=== PATIENT | female | born 1945 | race Caucasian/White ===

== ENCOUNTER 2016-12-29 22:19 | Observation (INO) | payer OTHER ==
[~2016-12-29] VITALS: Ht 152.4 cm; Wt 66.5 kg
[2016-12-29 23:40] LABS: ADD MIUA? NO; BILIRUBIN NEGATIVE; BLOOD NEGATIVE; COLOR STRAW ((YELLOW)); GLUCOSE (STRIP) NEGATIVE; KETONES NEGATIVE; LEUKOCYTES NEGATIVE; NITRITE NEGATIVE; PROTEIN (STRIP) NEGATIVE; SPECIFIC GRAVITY 1.004 (1.000-1.030); UCUL ADDED? NO; UROBILINOGEN 0.2 MG/DL (0.2-1.0)
[2016-12-29 23:47] LABS: EOSINOPHIL (%) 0.9 % (0-5); EOSINOPHIL COUNT 0.1 K/uL (0-0.3); HEMATOCRIT 34.8 % (36.0-46.0); IMMATURE GRANULOCYTE (%) 0.3 % (0.0-0.7); INSTRUMENT ABS NEUTROPHIL CT 5.3 K/uL; LYMPHOCYTE COUNT 1.3 K/uL (1.0-2.8); MCH 32.2 PG (29.0-34.0); MCHC 32.2 G/DL (30.0-36.0); MEAN PLAT.VOLUME 11.2 uM^3 (9.5-12.4); MONOCYTE (%) 9.3 % (3-12); MONOCYTE COUNT 0.7 K/uL (0-0.8); NEUTROPHIL (%) 71.7 % (45-76); NEUTROPHIL COUNT 5.3 K/uL (1.8-6.4); PLATELET COUNT 166 K/uL (156-360); RBC DIS.WIDTH-CV 12.8 % (11.8-14.6); RBC DIS.WIDTH-SD 46.6 % (39-53); RED BLOOD COUNT 3.48 M/uL (3.80-5.20); WHITE BLOOD COUNT 7.4 K/uL (4.1-10.2)
[2016-12-30] LABS: CHLORIDE 112 mEq/L (99-109); POTASSIUM 4.3 mEq/L (3.7-5.4); SODIUM 145 mEq/L (136-147)
[2016-12-30 00:02] LABS: GLUCOSE 87 mg/dL (70-99)
[2016-12-30 00:03] LABS: ANION GAP 10 MEQ/L (2-14)
[2016-12-30 00:04] LABS: INTER. NORMALIZED RATIO 1.1; PROTHROMBIN TIME 11.5 (9.2-11.2); PTT 32.1 (25-32)
[2016-12-30 00:06] LABS: GFR ESTIMATE (CALCULATED) 30 mL/min/; UREA NITROGEN (BUN) 33 mg/dL (9-23)
[2016-12-30 00:09] LABS: TROP-I INTERPRETATION NEGATIVE; TROPONIN-I < 0.01 ng/mL (0.0-0.30)
[2016-12-30 01:22] LABS: HDL CHOLESTEROL 52 MG/DL (Desirable>=50); LDL CHOLESTEROL 100 mg/dL (Desirable<100); NON-HDL CHOLESTEROL 112 mg/dL (Desirable<160); TOTAL CHOLESTEROL 164 mg/dL (Desirable<200); TRIGLYCERIDES 60 MG/DL (Normal: <150)
[2016-12-30] MEDS ORDERED: PERCOCET 10/1 TABLET PO (01:35)
[2016-12-30] MEDS ORDERED: ZESTRIL20 MG PO (01:35)
[2016-12-30] MEDS ORDERED: MIRTAZAPINE7.5 MG PO (01:36)
[2016-12-30] MEDS ORDERED: ELIQUIS2.5 MG PO (01:36)
[2016-12-30] MEDS ORDERED: ATORVASTATIN CA40 MG PO (01:36)
[2016-12-30] MEDS ORDERED: LEVO-T75 MCG PO (01:37)
[2016-12-30] MEDS ORDERED: CENTRUM SILVER1 EAC4 PO (01:37)
[2016-12-30] MEDS ORDERED: CARDIZEM120 MG PO (01:37)
[2016-12-30] MEDS ORDERED: POLY-IRON150 MG PO (01:38)
[2016-12-30] MEDS ORDERED: CELEXA20 MG PO (01:38)
[2016-12-30] MEDS ORDERED: AMIODARONE HCL200 MG PO (01:38)
[2016-12-30] MEDS ORDERED: NEURONTIN400 MG PO (01:39)
[2016-12-30] MEDS ORDERED: ALPRAZOLAM0.5 MG PO (01:39)
[2016-12-30] MEDS ORDERED: BIOTIN1000 MICRO PO (01:39)
[2016-12-30] MEDS ORDERED: XANAX0.5 MG PO (01:40)
[2016-12-30 06:18] VITALS: BP 142/82
[2016-12-30 07:17] LABS: Estimated Average Glucose 103 mg/dL (70-123); HEMOGLOBIN A1c (GLYCOHEMOGLOB) 5.2 % HGB (Below 5.7)
[2016-12-30 10:49] VITALS: BP 174/82
[2016-12-30 12:40] VITALS: BP 134/72
[2016-12-30 12:57] LABS: HEMATOCRIT 38.6 % (36.0-46.0); MCH 33.2 PG (29.0-34.0); MCHC 32.6 G/DL (30.0-36.0); MCV 101.6 FL (83-99); MEAN PLAT.VOLUME 11.1 uM^3 (9.5-12.4); PLATELET COUNT 170 K/uL (156-360); RBC DIS.WIDTH-SD 48.5 % (39-53); WHITE BLOOD COUNT 6.8 K/uL (4.1-10.2)
[2016-12-30 13:19] LABS: ANION GAP 9 MEQ/L (2-14); CHLORIDE 110 MEQ/L (99-109); POTASSIUM 4.4 MEQ/L (3.7-5.4); SAMPLE HEMOLYSIS CHECK 0; SAMPLE ICTERIC CHECK 0; SAMPLE LIPEMIA CHECK 0; SODIUM 143 MEQ/L (136-147)
[2016-12-30 13:25] LABS: GFR ESTIMATE (CALCULATED) 40 mL/min/; GLUCOSE 103 mg/dL (70-99); UREA NITROGEN (BUN) 28 mg/dL (9-23)
[2016-12-30] MEDS ORDERED: ASPIR-LOW81 MG PO (14:21)
== END 2016-12-30 16:38 | disposition home or self-care (01) ==
LOC: EME 22:19 → EDOF 12-30 04:01 → 5WEST 12-30 05:42
PROVIDERS: Emergency Medicine; Physician Assistant Medical
DX: G45.9 Transient cerebral ischemic attack, unspecified (principal); F01.50 Vascular dementia, unspecified severity, without behavioral disturbance, psychotic disturbance, mood disturbance, and anxiety; I11.0 Hypertensive heart disease with heart failure; I50.9 Heart failure, unspecified; J44.9 Chronic obstructive pulmonary disease, unspecified; E78.5 Hyperlipidemia, unspecified; Z87.891 Personal history of nicotine dependence; Z95.0 Presence of cardiac pacemaker; E03.9 Hypothyroidism, unspecified; Z88.0 Allergy status to penicillin; I48.91 Unspecified atrial fibrillation; M79.7 Fibromyalgia
CPT/HCPCS: 70450; 71020; 80048; 80061; 81003; 82607; 83036; 84443; 84484; 85025; 85027; 85610; 85730; 93005; 93880; 99281; 99285; G0378; G8978 GP CI; G8979 GP CH; J7030

== ENCOUNTER 2017-04-30 12:34 | Day surgery (SDC) | payer OTHER ==
[~2017-04-30] VITALS: Ht 152.4 cm; Wt 61.2 kg
[~2017-04-30 12:34] MED LIST: ALPRAZOLAM0.5 MG PO; AMIODARONE HCL200 MG PO; ASPIR-LOW81 MG PO; ATORVASTATIN CA40 MG PO; BIOTIN1000 MICRO PO; CARDIZEM120 MG PO; CELEXA20 MG PO; CENTRUM SILVER1 EAC4 PO; ELIQUIS2.5 MG PO; LEVO-T75 MCG PO; MIRTAZAPINE7.5 MG PO; NEURONTIN400 MG PO; PERCOCET 10/1 TABLET PO; POLY-IRON150 MG PO; XANAX0.5 MG PO; ZESTRIL20 MG PO
[2017-04-30] MEDS ORDERED: ELIQUIS5 MG PO ×2 (13:00→13:01)
== END 2017-04-30 14:06 | disposition home or self-care (01) ==
LOC: PAIN 12:34 → SDC 13:00 → PAIN 13:00
DX: M53.3 Sacrococcygeal disorders, not elsewhere classified (principal); M46.1 Sacroiliitis, not elsewhere classified; I10 Essential (primary) hypertension; E03.9 Hypothyroidism, unspecified; J44.9 Chronic obstructive pulmonary disease, unspecified; Z87.891 Personal history of nicotine dependence; Z88.0 Allergy status to penicillin; I48.0 Paroxysmal atrial fibrillation; I73.9 Peripheral vascular disease, unspecified; Z86.73 Personal history of transient ischemic attack (TIA), and cerebral infarction without residual deficits; Z79.01 Long term (current) use of anticoagulants
CPT/HCPCS: J1030; J1100; J2250; J3010; S0020

== ENCOUNTER 2017-07-12 04:16 | Emergency (ER) | payer OTHER ==
[~2017-07-12] VITALS: Ht 152.4 cm; Wt 59.5 kg
[~2017-07-12 04:16] MED LIST changes: +ELIQUIS5 MG PO
[2017-07-12 06:15] VITALS: BP 129/63
== END 2017-07-12 06:15 | disposition home or self-care (01) ==
LOC: EME 04:16
PROC: 0HQ1XZZ Repair Face Skin, External Approach (ICD-10-PCS; principal; 2017-07-12)
DX: S01.81XA Laceration without foreign body of other part of head, initial encounter (principal); W01.198A Fall on same level from slipping, tripping and stumbling with subsequent striking against other object, initial encounter; Y92.002 Bathroom of unspecified non-institutional (private) residence as the place of occurrence of the external cause; Z79.01 Long term (current) use of anticoagulants; Z88.2 Allergy status to sulfonamides; Z88.5 Allergy status to narcotic agent; Z88.0 Allergy status to penicillin
CPT/HCPCS: 99281; 99284

== ENCOUNTER 2017-08-17 10:47 | Day surgery (SDC) | payer OTHER ==
[~2017-08-17] VITALS: Ht 152.4 cm; Wt 63.0 kg
[~2017-08-17 10:47] MED LIST changes: +ASCORBIC ACID500 M3 PO; +CATAPRES0.1 MG PO; +LORTAB 10-3251 EACH PO; +TYLENOL EXTRA500 MG PO; +WELLBUTRIN75 MG PO
[2017-08-19] MEDS ORDERED: METAMUCIL PACK3.4 GM PO (16:07)
== END 2017-08-17 12:45 | disposition home or self-care (01) ==
LOC: PAIN 10:47 → SDC 11:15 → PAIN 12:45
DX: M47.816 Spondylosis without myelopathy or radiculopathy, lumbar region (principal); M54.5 Low back pain; G89.29 Other chronic pain; M46.1 Sacroiliitis, not elsewhere classified; M53.3 Sacrococcygeal disorders, not elsewhere classified; M79.7 Fibromyalgia; F41.8 Other specified anxiety disorders; I12.9 Hypertensive chronic kidney disease with stage 1 through stage 4 chronic kidney disease, or unspecified chronic kidney disease; N18.3 Chronic kidney disease, stage 3 (moderate); E03.9 Hypothyroidism, unspecified; J44.9 Chronic obstructive pulmonary disease, unspecified; Z87.891 Personal history of nicotine dependence
CPT/HCPCS: J1030; J2250; J3010; S0020

== ENCOUNTER 2017-08-24 13:03 | Day surgery (SDC) | payer OTHER ==
[~2017-08-24] VITALS: Ht 152.4 cm; Wt 61.2 kg
[~2017-08-24 13:03] MED LIST changes: +METAMUCIL PACK3.4 GM PO
[2017-08-24] MEDS ORDERED: LISINOPRIL20 MG PO (13:17)
== END 2017-08-24 14:35 | disposition home or self-care (01) ==
LOC: PAIN 13:03 → SDC 13:30 → PAIN 14:35
DX: M47.816 Spondylosis without myelopathy or radiculopathy, lumbar region (principal); G89.29 Other chronic pain; M79.1 Myalgia; M53.3 Sacrococcygeal disorders, not elsewhere classified; M46.1 Sacroiliitis, not elsewhere classified; I71.4 Abdominal aortic aneurysm, without rupture; I48.91 Unspecified atrial fibrillation; I12.9 Hypertensive chronic kidney disease with stage 1 through stage 4 chronic kidney disease, or unspecified chronic kidney disease; N18.3 Chronic kidney disease, stage 3 (moderate); Z95.0 Presence of cardiac pacemaker; Z87.891 Personal history of nicotine dependence
CPT/HCPCS: J1030; J2250; J3010; S0020

== ENCOUNTER 2017-10-12 08:51 | Day surgery (SDC) | payer OTHER ==
[~2017-10-12] VITALS: Ht 152.4 cm; Wt 61.2 kg
[~2017-10-12 08:51] MED LIST changes: +LISINOPRIL20 MG PO
== END 2017-10-12 11:10 | disposition home or self-care (01) ==
LOC: PAIN 08:51 → SDC 09:15 → PAIN 11:10
DX: M47.816 Spondylosis without myelopathy or radiculopathy, lumbar region (principal); M79.7 Fibromyalgia; M53.3 Sacrococcygeal disorders, not elsewhere classified; G89.29 Other chronic pain; M46.1 Sacroiliitis, not elsewhere classified; I12.9 Hypertensive chronic kidney disease with stage 1 through stage 4 chronic kidney disease, or unspecified chronic kidney disease; N18.3 Chronic kidney disease, stage 3 (moderate); D64.9 Anemia, unspecified; F41.8 Other specified anxiety disorders; E03.9 Hypothyroidism, unspecified; Z79.891 Long term (current) use of opiate analgesic; Z79.01 Long term (current) use of anticoagulants; Z87.891 Personal history of nicotine dependence; Z95.0 Presence of cardiac pacemaker
CPT/HCPCS: J1030; J2250; S0020

== ENCOUNTER 2017-10-19 08:19 | Day surgery (SDC) | payer OTHER ==
[~2017-10-19] VITALS: Ht 152.4 cm; Wt 61.2 kg
== END 2017-10-19 10:00 | disposition home or self-care (01) ==
LOC: PAIN 08:19 → SDC 08:45 → PAIN 08:45
DX: M47.816 Spondylosis without myelopathy or radiculopathy, lumbar region (principal); G89.29 Other chronic pain; M54.5 Low back pain; M53.3 Sacrococcygeal disorders, not elsewhere classified; Z79.1 Long term (current) use of non-steroidal anti-inflammatories (NSAID); Z87.891 Personal history of nicotine dependence; I12.9 Hypertensive chronic kidney disease with stage 1 through stage 4 chronic kidney disease, or unspecified chronic kidney disease; N18.3 Chronic kidney disease, stage 3 (moderate); I48.91 Unspecified atrial fibrillation; Z79.01 Long term (current) use of anticoagulants; Z88.0 Allergy status to penicillin; Z88.1 Allergy status to other antibiotic agents; Z88.2 Allergy status to sulfonamides
CPT/HCPCS: J1030; J2250; S0020